=== PATIENT | female | born 1950 | race Caucasian/White ===

== ENCOUNTER 2016-07-31 12:37 | Inpatient (IN) ==
[2016-07-31] MEDS ORDERED: ADENOCARD ONE (12:55)
--- NOTE | 2016-07-31 13:02 | EKG Report ---
Test Performed on : 07/31/2016 12:50:23 PM Test Reason : No Order in [facility] Blood Pressure : / mmHG Vent. Rate : 159 BPM Atrial Rate : 153 BPM P-R Int : 000 ms QRS Dur : 094 ms QT Int : 326 ms P-R-T Axes : 000 -53 139 degrees QTc Int : 530 ms Supraventricular tachycardia. Left axis deviation Left ventricular hypertrophy with repolarization abnormality Abnormal ECG No previous ECGs available Unconfirmed Result
[2016-07-31] MEDS ORDERED: NS 1,000 ML ONE (13:22)
[2016-07-31] MEDS ORDERED: CORDARONE IV ONE (13:29)
[2016-07-31] MEDS ORDERED: CORDARONE 150 MG/D5W 150 MG/100 ML IV.SOLN ONE (13:31)
[2016-07-31] MEDS ORDERED: CORDARONE 150 MG/D5W 150 MG/100 ML IV.SOLN IV ONE (13:32)
[2016-07-31] MEDS ORDERED: ADENOCARD IV ONE ×2 (13:39)
[2016-07-31] MEDS ORDERED: CORDARONE 540 MG in D5W 289.2 ML IV ONE (13:51)
[2016-07-31] MEDS ORDERED: CORDARONE 360 MG/D5W 360 MG/200 ML IV.SOLN IV ONE (13:51)
[2016-07-31] MEDS ORDERED: NS 1,000 ML IV ONE (14:15)
--- NOTE | 2016-07-31 14:20 | PROVIDER DOCUMENTATION ---
This chart was entered by Salome Mcgill Scribe, acting as scribe for Racquel Varela Jr, MD. HPI-Chest Pain - General Chief Complaint: Palpitations Stated Complaint: sob/nausea Time Seen by Provider: 07/31/16 12:59 Source: patient Allergies/Adverse Reactions: Patient Allergies Allergy/AdvReac Type Severity Reaction Status Date / Time clonazepam [From Klonopin] Allergy DIZZINESS Verified 07/31/16 13:55 erythromycin base Allergy RASH Verified 07/31/16 13:55 [Erythromycin Base] povidone-iodine Allergy RASH Verified 07/31/16 13:55 [From Betadine] soap * [From Betadine] Allergy RASH Verified 07/31/16 13:55 topiramate [From Topamax] Allergy RASH Verified 07/31/16 13:55 trazodone Allergy DIZZINESS Verified 07/31/16 13:55 trimethoprim [From Polytrim] Allergy Unknown Verified 07/31/16 13:55 zonisamide [From Zonegran] Allergy Unknown Verified 07/31/16 13:55 adhesive AdvReac Severe RASH Verified 07/31/16 13:55 Home Medications: Home Medication List Medication Instructions Recorded Confirmed Last Taken Type Insulin Aspart [Novolog Flexpen] 35 unit SQ TID 10/04/13 07/31/16 1 Day Ago History Lactulose [Kristalose] 10 gm PO DAILY 10/04/13 07/31/16 1 Month Ago History Levothyroxine [Synthroid] 200 microgm PO DAILY 10/04/13 07/31/16 07/31/16 History Magnesium 2,400 mg PO BID 10/04/13 07/31/16 07/31/16 History Rosuvastatin Calcium [Crestor] 10 mg PO DAILY 10/04/13 07/31/16 1 Day Ago History Methocarbamol [Robaxin-750] 750 mg PO 4XDAY 11/14/13 07/31/16 1 Month Ago History Insulin Degludec [Tresiba 70 unit SQ QHS 07/31/16 07/31/16 1 Day Ago History Flextouch U-200] Lifitegrast [Xiidra] 1 drop OP BID 07/31/16 07/31/16 07/31/16 History Montelukast [Singulair] 10 mg PO QHS 07/31/16 07/31/16 1 Day Ago History Torreon-3 Fatty Acids [Fish Oil] 1,000 mg PO 07/31/16 1 Day Ago History Ondansetron HCl [Zofran] 4 mg PO BID 07/31/16 07/31/16 1 Day Ago History Oxymorphone HCl [Opana] 10 mg PO BID 07/31/16 07/31/16 1 Week Ago History Oxymorphone HCl [Oxymorphone HCl 10 mg PO BID 07/31/16 07/31/16 1 Week Ago History ER] Promethazine [Phenergan] 25 mg PO Q6H PRN PRN 07/31/16 07/31/16 07/31/16 History Propylene Glycol/Peg 400 [Systane 1 drop OP 4XDAY 07/31/16 07/31/16 07/31/16 History 0.3-0.4% Eye Drops] Rosuvastatin Calcium [Crestor] 10 mg PO QHS 07/31/16 07/31/16 1 Day Ago History Sucralfate [Carafate] 1 gm PO 4XDAY 07/31/16 07/31/16 07/31/16 History - History of Present Illness-CP Nature of Presenting Problem: PT IS A 66YOF PRESENTING TO THE ED C/O PALPITATIONS. PT STATES LAST PM SHE FELT PALPITATIONS, WEAKNESS, SOB, AND SHE FELT LIKE SHE HAD INDIGESTION. PT HAD PRESSURE FROM HER CHEST THAT RADIATED UP HER LEFT JAW AND BEHIND HER LEFT EAR. THIS AM WHEN SHE WOKE SHE STATED "IT FELT LIKE HER HEART WAS GOING TO BEAT OUT OF HER CHEST." PT STATES INDIGESTION WITH INCREASED WEAKNESS,. DISCOMFORT FROM CHEST UP JAW AND IN BETWEEN HER SHOULDER BLADES, SOB AND DIZZINESS BUT NO TRUE PAIN AT THAT TIME. PT ALSO STATES INCREASED AND PROFUSE SWEATING. UPON ARRIVAL TO ED PT IS IN SVT BUT STABLE AT THAT TIME. PT STATED SHE STARTED A NEW DM MEDICATION CALLED TRULISTY ON 07/14/16 AND SHE HAS BEEN SICK AND WORSENING SYMPTOMS SINCE 07/14/16N W/ N/V. PT STOPPED MEDS AND HASN'T GOTTEN ANY BETTER OR RESOLUTION OF SYMPTOMS AT THIS TIME. Location: reports: central Chest Pain Radiation: reports: jaw, arms, neck, shoulders Quality of Pain: reports: fullness, pressure Severity in ED: severe Onset/Duration: 1-3 hours ago Timing: still present Context/Activities at Onset: reports: light activity Modifying Factors: improves with: movement Associated Symptoms: reports: diaphoresis, dizziness, fatigue, heartburn, nausea , shortness of breath, weakness. denies: vomiting Nitro Today/Relief: no nitro taken today Aspirin Treatment Today: 325 mg x 1, provided by ED Prior Chest Pain/Cardiac Workup: reports: cardiac cath, stress test Similar Symptoms Previously?: No Recently Seen Here or By Another Healthcare Provider: No Review of Systems - Adult - REVIEW OF SYSTEMS - ADULT Constitutional: reports: no symptoms reported Eyes: reports: no symptoms reported Ears, Nose, Mouth & Throat: reports: no symptoms reported Cardiovascular: reports: see HPI, chest pain, irregular heart rate, palpitations . denies: syncope Respiratory: reports: see HPI, dyspnea on exertion, shortness of breath. denies : wheezing Gastrointestinal: reports: no symptoms reported Genitourinary: reports: no symptoms reported Musculoskeletal: reports: no symptoms reported Integumentary: reports: no symptoms reported Neurological: reports: see HPI, dizziness/vertigo, tremors. denies: loss of balance, seizure Psychiatric: reports: no symptoms reported Endocrine: reports: no symptoms reported Hematologic/Lymphatic: reports: no symptoms reported Allergic/Immunologic: reports: no symptoms reported All Other Systems: Reviewed and Negative Past History - Adult - PAST MEDICAL HISTORY-ADULT Review of Records: reports: Old Records Reviewed, Nursing Assessment Review, Medications Reviewed, Social history reviewed & non-contributory. Major Childhood Illnesses: reports: denies history Cardiovascular: reports: hyperlipidemia Respiratory: reports: denies history Gastrointestinal: reports: GERD Obstetrical/Gynecological: reports: denies history Genitourinary: reports: denies history Musculoskeletal: reports: arthritis, chronic pain (chronic back pain/ djd), other (chronic fatigue, tendonitis, bone spurs) Neurological: reports: denies history Endocrine/Immune: reports: Diabetes Other Conditions: reports: other (fibromyalgia) - PRIOR SURGERIES/PROCEDURES Surgical/Procedure History: reports: cholecystectomy, hysterectomy, orthopedic ( extremity) (Total knee replacement), other (carpal tunnel; tka bilaterally; bladder sling.) - IMMUNIZATION STATUS Childhood Immunizations: UTD Flu Vaccine: UTD - FAMILY HISTORY Family History: reviewed, not pertinent - SOCIAL HISTORY Smoking: quit greater than 1 year Substance Use: denies Alcohol Use Frequency: never Living Situation: family Physical Exam-General - PHYSICAL EXAM-ADULT Initial Vital Signs Reviewed: Yes - CONSTITUTIONAL General Appearance: alert, severe distress, obese, anxious - EYES Eyes: PERRL/EOMI, pink conjunctivae - HEAD, EARS, NOSE, MOUTH & THROAT HENMT: normocephalic/atraumatic, moist mucous membranes, normal ENT inspection, TMs normal, pharynx normal - NECK Neck: non-tender, full range of motion, supple, normal inspection - RESPIRATORY Respiratory: chest non-tender, lungs clear, normal breath sounds, no pleuratic chest pain, no respiratory distress, no accessory muscle use - CARDIOVASCULAR Cardiovascular: normal peripheral pulses, no edema, no gallop, no JVD, no murmur , tachycardia. negative: regular rate, rhythm - GASTROINTESTINAL (ABDOMEN) Abdominal Exam: normal bowel sounds, non tender, soft, no organomegaly, no pulsatile mass - LYMPHATIC Lymphatic: no adenopathy - MUSCULOSKELETAL Back Exam: normal inspection, no CVA tenderness, no vertebral tenderness Extremity: non-tender, no pedal edema, no calf tenderness, normal capillary refill, pelvis stable. 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 negative: normal mood/affect Progress - PLAN OF CARE/RESULTS Progress/Plan/Lab Results: Vital Signs - 8 hr 07/31/16 12:50 07/31/16 13:25 07/31/16 13:27 Temperature 98.5 F Pulse Rate 158 H 156 H 157 H Respiratory Rate 24 24 25 H Blood Pressure 131/80 134/117 O2 Sat by Pulse Oximetry 100 99 100 07/31/16 14:08 07/31/16 14:10 Temperature Pulse Rate 154 H 142 H Respiratory Rate 15 19 Blood Pressure 109/86 109/86 O2 Sat by Pulse Oximetry 100 99 Orders Category Date Time Status 0.9% Sodium Chloride Inj [Ns] 1,000 ml Med 07/31/16 13:22 Discontinued .ROUTE As Directed 0.9% Sodium Chloride Inj [Ns] 1,000 ml Med 07/31/16 14:15 Active IV 999 mls/hr Adenosine [Adenocard] Med 07/31/16 13:39 Discontinued 12 mg IV NOW ONE Adenosine [Adenocard] Med 07/31/16 12:55 Discontinued 18 mg .ROUTE .STK-MED ONE Adenosine [Adenocard] Med 07/31/16 13:39 Discontinued 6 mg IV NOW ONE Amiodarone 150 mg/D5w [Cordarone 150 mg/D5w] Med 07/31/16 13:31 Discontinued 150 mg in 100 ml .ROUTE As Directed Amiodarone 150 mg/D5w [Cordarone 150 mg/D5w] Med 07/31/16 13:32 Discontinued 150 mg in 100 ml IV NOW Amiodarone 360 mg/D5w [Cordarone 360 mg/D5w] Med 07/31/16 13:51 Active 360 mg in 200 ml IV ONCE Dextrose 5%-Water Inj [D5w] 289.2 ml Med 07/31/16 13:51 Active Amiodarone [Cordarone] 540 mg IV 16.667 mls/hr EKG [EKG] Routine Ther 07/31/16 12:[address] VARELA AT BEDSIDE TO ATTEMPT TO CARDIOVERT PT. DR VARELA ORDERED ADENOSINE FOR CARDIOVERSION ATTEMPT. 1327 6MG ADENOSINE PUSHED WITH NO CARDIO-VERSION 1329 DR VARELA ADVISED PT TO TAKE A DEEP BREATH AND BARE DOWN ATTEMPTING VAGEL MANEUVER FOR CARDIO-VERSION, UNSUCCESSFUL 1330 12MG ADENOSINE PUSHED, UNSUCCESSFUL, PT BLOOD PRESSURE STABLE AT THIS TIME SO WILL CONSULT CARDIOLOGY FOR CARDIO-VERSION. 1331 150MG AMIO ORDER X2 IF NEEDED FOR CADIO-VERSION LONG PT CONTINUES TO STAY STABLE. 1347 DR VELEZ WAS CALLED AND HE STATED HE WOULD SEE PT IN ED BUT AGREES WITH POC AT THIS TIME - CONSULTS/PCP/HOSPITALIST Notification #1 *Consult/PCP/Hospitalist*: DR. VELEZ Time Discussed: 13:47 Reason/Comments: CONSULT FOR CARDIOVERSION WILL SEE IN ED Consult Disposition: Will see in ED #2 Consult: DR. LUTHER Time Discussed: 14:11 Consult Disposition: Admit (PER [employer] WORKER) Procedures - CARDIOVERSION/DEFIBRILLATION Procedure, Risk, Benefits and Alternatives discussed with:: Patient, Family Members Consent form signed?: Yes Time-Out Verification Completed?: Yes Cardioverted/Defibrillated at:: 6MG ADENOSINE, 12MG ADENOSINE, 150MG AMIODARONE X2 Post Cardioversion/Defibrillation Rate: PT STILL SVT OF 158 AFTER ADENOSINE Post Cardioversion/Defibrillation Rhythm: PT STARTING TO RESPOND TO AMIODARONE DRIP, HR BOUNCING BUT BETTER, VS Procedure Comment: CONSULTED CARDIOLOGY AND DR. VELEZ STATED HE WILL SEE IN ED Departure - Departure Date of Disposition Decision: 07/31/16 Time of Disposition Decision: 14:19 DIAGNOSIS: SVT (supraventricular tachycardia) Disposition: ADMITTED INPATIENT 09 Certified Medical Emergency: Emergent Condition: Fair Referrals and Follow-Ups: Rad Ramírez MD [Primary Care Provider] - - Critical Care Note This patient required my direct & personal management of CC.: Yes Total Time (mins): 60 (DR VARELA) Critical Care Statement: This patient required my direct personal management to treat or rule out processes, the absence of which, could potentiallly result in sudden, clinically significant life or limb threatening deterioration. This chart was documented by the indicated scribe, (Salome Mcgill Scribe) and accurately reflects the services I performed and decisions made by me, Racquel Varela Jr, MD, as attested by the provider's signature.
--- NOTE | 2016-07-31 14:43 | Diag Imaging Result Doc PS360 ---
EXAM: CHEST-PORTABLE HISTORY: SVT TECHNIQUE: COMPARISON: None. FINDINGS: The lungs are well expanded. The heart is not enlarged. The vessels are not distended. No pneumonia. No pleural effusions identified. IMPRESSION: Negative chest Electronically signed by Anthony Clark 07/31/2016 2:40 PM
--- NOTE | 2016-07-31 15:39 | ED EKG INTERP ---
This chart was entered by Salome Mcgill Scribe, acting as scribe for Zachery Martinez MD. EKG Interpretation - EKG Time of EKG reading by physician:: 12:50 EKG Read and Signed by:: Zachery Martinez EKG Interpretation (*Must complete 3 of following elements*): Abnormal Rate: 159 Rhythm: SVT [place]: left QRS: LVH (W/ REPOLARIZATION ABNORMALITY) [place] Interval: normal This chart was documented by the indicated scribe, (Salome Mcgill Scribe) and accurately reflects the services I performed and decisions made by me, Zachery Martinez MD, as attested by the provider's signature.
[2016-07-31 15:58] LABS: MANUAL DIFF NEEDED? NO
[2016-07-31 16:04] LABS: BASO% 0.7 % (0.0-0.8); EOS# 0.23 X1000 (0.0-0.7); EOS% 1.8 % (0.0-10.0); HEMATOCRIT 43.7 % (37.0-47.0); HEMOGLOBIN 14.3 g/dL (12.0-16.0); IMM GRAN# 0.04 X1000 (0.0-0.04); IMM GRAN% 0.3 % (0.0-0.5); LYMPH# 4.12 X1000 (1.2-3.4); LYMPH% 32.1 % (20.5-51.1); MCH 27.8 PG (27-31); MCHC 32.7 g/dL (33-37); MCV 84.9 FL (81-99); MONO# 0.91 X1000 (0.11-0.59); MONO% 7.1 % (1.7-9.3); MPV 13.3 FL (7.4-10.4); PLT 249 X1000 (130-400); RBC 5.15 XMIL (4.2-5.4)
[2016-07-31 16:18] LABS: AGAP 22; ALBUMIN 4.1 g/dL (3.5-5.0); ALKALINE PHOSPHATASE 81 U/L (32-104); BUN 16 mg/dL (8-22); CALCIUM 9.6 mg/dL (8.8-10.2); CHLORIDE 100 mmol/L (98-107); COSMO 281; GOT 26 U/L (10-30); GPT 23 U/L (10-36); POTASSIUM 4.6 mmol/L (3.5-5.1); SODIUM 139 mmol/L (136-145); TCO2 17 mmol/L (25-35); TOTAL BILIRUBIN 0.79 mg/dL (0.20-1.00); TOTAL PROTEIN 7.8 g/dL (6.3-8.3)
[2016-07-31] MEDS ORDERED: ZOFRAN IV PRN (16:39)
--- NOTE | 2016-07-31 16:54 | HISTORY AND PHYSICAL ---
PRIMARY CARE PHYSICIAN: Dr. Ramírez. GASTROINTESTINAL PHYSICIAN: Dr. Peña. PAIN PHYSICIAN: Is Dr. Avni Leyva as well as [place]. The patient was set up to have an appointment with Dr. Blackman this . CHIEF COMPLAINT: Palpitations that started on her walk into the ED after experiencing chest pain. HISTORY OF PRESENT ILLNESS: Ms. Ward is a 66-year-old morbidly obese, female, who carries a past medical history of sleep apnea, wears home CPAP, GERD, hyperlipidemia, arthritis, chronic pain in the back, degenerative joint disease, chronic fatigue, tendinitis, bone spurs, diabetes, fibromyalgia. The patient stated that her symptoms began back on July 14 where she thought she had a stomach virus after other family members had the stomach virus. She had several days of nausea, vomiting, diarrhea. She was also started on a new diabetic med which could cause the similar symptoms so she stopped that medication. After a few days she felt better but continued to have nausea so she took herself off of 2 pain medications, her Lyrica and her muscle relaxer as well as her Protonix and she also stopped taking her magnesium. Then again she started having intermittent diarrhea. Continued to have the nausea but no vomiting. She states that she occasionally does have shortness of breath but more so over the last few days she has had dyspnea with exertion. Today she started having chest pain that started out as a burning sensation in her throat that moved up to her left jaw and then went behind her left ear. She stated that this chest pain went between her shoulder blades. It felt like her gastritis and when she had gallbladder pain prior to her cholecystectomy. She said it felt the exact same way. It did wax and wane but when it went in between her shoulder blades, she did drive herself to the ED and when she was walking in is when she started having the palpitations with a severe shortness of breath. In the ED, she was found to be in SVT. She was also experiencing nausea, diaphoresis, clamminess. She was given 6 mg of adenosine with no change, then 12 mg of adenosine with no change and then bolused with amiodarone twice with no change and then started on amiodarone drip. Her heart rate now will be anywhere from 120s to 150s on beside monitor appears to look like atrial fibrillation. Dr. Ceron is to see the patient in the ED for cardioversion. No current laboratory data. Chest x-ray showed that the lungs were well expanded. The heart was not enlarged. The vessels were not distended. No pleural effusions. First EKG showed SVT with left axis deviation. I do not have those to review. Second EKG continued to show SVT with left axis deviation. The patient will be admitted to the ICU for possible cardioversion with Cardiology. REVIEW OF SYSTEMS: Ten point review of systems completely negative except for those mentioned in HPI. PAST MEDICAL HISTORY: 1. Hyperlipidemia. 2. GERD. 3. Arthritis. 4. Chronic pain. 5. Chronic back pain. 6. Chronic fatigue. 7. Tendinitis. 8. Bone spurs. 9. Diabetes mellitus. 10. Fibromyalgia. PAST SURGICAL HISTORY: 1. Cholecystectomy. 2. Hysterectomy. 3. Total knee replacement. 4. Carpal tunnel. 5. Bladder sling. FAMILY HISTORY: Reviewed. Not pertinent. SOCIAL HISTORY: The patient quit smoking greater than a year ago. No alcohol use. Lives with family. She has been disabled now for over 20 years. ALLERGIES: 1. Klonopin causes dizziness. 2. Erythromycin causes a rash. 3. Betadine causes a rash. 4. Topamax causes a rash. 5. Trazodone causes dizziness. 6. Polytrim unknown. 7. Zonegran unknown. 8. Adhesive tape, rash. HOME MEDICATIONS: 1. Opana 10 mg p.o. b.i.d. 2. Oxymorphone ER 10 mg p.o. b.i.d. 3. Xiidra 1 drop OP b.i.d. 4. Systane eyedrops 1 drop OP 4 times a day. 5. Phenergan 25 mg p.o. q.6 hours p.r.n. 6. Zofran 4 mg p.o. b.i.d. 7. Carafate 1 g p.o. 4 times a day. 8. Crestor 10 mg p.o. at bedtime. 9. Singulair 10 mg p.o. at bedtime. 10. Tresiba 70 units subcutaneous at bedtime. 11. Lactulose 10 g p.o. daily. 12. NovoLog FlexPen 35 units subcutaneously t.i.d. 13. Magnesium 75168 mg p.o. b.i.d. 14. Synthroid 200 mcg p.o. daily. 15. Robaxin 750 mg p.o. 4 times a day. 16. Crestor 10 mg p.o. daily. 17. Fish oil 1000 mg p.o. daily. PHYSICAL EXAM: VITAL SIGNS: Temperature is 98.5 degrees, heart rate 155, respirations 22, blood pressure 132/82, O2 is 99% on 3 L nasal cannula. GENERAL: Ms. Ward is a pleasant somewhat anxious 66-year-old morbidly obese, female, sitting up on the stretcher in no acute distress. HEENT: Atraumatic, normocephalic. PERRLA. NECK: Supple. Trachea midline. CV: No murmurs, gallops, or rubs noted. S1, S2 appreciated. The patient's heart rate would be anywhere from 120s up to the upper 150s. PULMONARY: Bilateral breath sounds clear to auscultation. GI: Is obese, soft, nontender nondistended. Positive bowel sounds 4 quadrants. EXTREMITIES: Negative for edema. NEURO: No focal deficits noted. SKIN: Warm, dry and intact. DIAGNOSTIC DATA: A chest x-ray was negative. Two EKGs that showed SVT with left axis deviation. LABORATORY DATA: Pending. ASSESSMENT AND PLAN: 1. SVT on arrival now vs, afib/aflutter Patient has been given 2 doses of adenosine as well as 2 boluses of amiodarone. She has been started on a amiodarone drip. She will be evaluated by Cardiology for possible cardioversion. She will be admitted to the ICU on telemetry. Pending labs: I have ordered a CMP, TSH as well as a magnesium and follow up EKG to assess for afib. start anticoagulation per cards recommendations. 2. Chronic pain. The patient had taken herself off of 2 pain medications, her Lyrica as well as her Robaxin. She has also advised her pain doctor of this. Will continue to monitor and order p.r.n. medicines on an as needed basis. 3. Chest pain. We will trend cardiac enzymes. Those are currently pending. We will follow up EKG in a.m. Await Cardiology input. 4. GERD. Continue PPI. 5. Hyperlipidemia. Continue statin. 6. Diabetes mellitus. Will do pattern blood sugars and sliding scale insulin. 7. Further recommendations following laboratory data, Cardiology evaluation as well as physician evaluation. Critical care time greater than 30 minutes. Dictated by ADI Hogan for Abel No MD cc: bAel No MD MTDD
[2016-07-31 17:05] LABS: URINE MICRO REVIEW NEEDED? NO; URINE SOURCE CATH
[2016-07-31 17:09] LABS: BILIRUBIN URINE NEGATIVE (NEGATIVE); BLOOD URINE NEGATIVE (NEGATIVE); COLOR STRAW; GLUCOSE URINE NEGATIVE (NEGATIVE); LEUKOCYTES URINE NEGATIVE (NEGATIVE); NITRITE URINE NEGATIVE (NEGATIVE); PROTEIN URINE NEGATIVE (NEGATIVE); SP GRAVITY URINE 1.006; TURBIDITY URINE CLEAR (CLEAR); UR EPITHELIAL CELLS <10 /HPF (<10); URINE BACTERIA NEGATIVE /HPF; URINE RBC <10 /HPF (<10); URINE WBC <10 /HPF (<10); UROBILINOGEN URINE NORMAL (NORMAL)
[2016-07-31] MEDS: HUMALOG SUBQ SCH ×2 (18:08→21:19)
[2016-07-31] MEDS: SYSTANE EYE DROPS BOTH EYES SCH ×2 (18:10→21:22)
[2016-07-31] MEDS: CARAFATE PO SCH ×2 (18:10→21:22)
[2016-07-31] MEDS ORDERED: ASPIRIN PO ONE (18:14)
[2016-07-31] MEDS ORDERED: LOVENOX SUBQ SCH (20:00)
[2016-07-31] MEDS ORDERED: MAGNESIUM PO SCH (21:00)
[2016-07-31] MEDS: TYLENOL PO PRN (21:20)
[2016-07-31] MEDS: MAG-OX PO SCH (21:22)
[2016-07-31] MEDS: CRESTOR PO SCH (21:23)
[2016-07-31] MEDS: ZOFRAN IV PRN (23:49)
--- NOTE | 2016-07-31 23:49 | CONSULTATION ---
DATE OF CONSULTATION: 07/31/2016 IMPRESSION: 1. Atrial flutter with rapid ventricular rate. Duration not clear. 2. Obesity. 3. Obstructive sleep apnea. 4. Hyperlipidemia. RECOMMENDATIONS: 1. Continue amiodarone for now. 2. Supplement amiodarone with intravenous Cardizem for rate control. Anticoagulate with Lovenox for thromboembolic risk reduction. 3. Echocardiography. 4. If atrial flutter persists, consider transesophageal echocardiography/cardioversion. HISTORY: This 66-year-old white female with a past history of morbid obesity, obstructive sleep apnea, hyperlipidemia, and gastroesophageal reflux, was admitted through the emergency room for further management of atrial flutter with rapid ventricular rate. She also has a history of diabetes mellitus, requiring insulin for control. Around July 14, she started having problems with a tendency for diaphoresis and exertional shortness of breath with minimal threshold such as walking through the house. She also had some nausea. She does not recall much in the way of palpitations. However, in the last 48 hours, she has noted some palpitations. Her symptoms have progressively worsened, and she presented to the emergency room, was found to be in narrow complex supraventricular tachycardia at around 160 beats per minute. She was administered intravenous adenosine 6 mg, and then 12 mg. She did not convert to sinus rhythm. She was subsequently started on intravenous amiodarone, admitted to the intensive care unit. Heart rate is slowed, and atrial flutter is apparent. She is not aware of any previous cardiac problems, arrhythmias, or palpitations in the past. PAST MEDICAL HISTORY: 1. Obesity. 2. Diabetes mellitus, requiring insulin for control. 3. Obstructive sleep apnea. 4. Gastroesophageal reflux. 5. Chronic fatigue. 6. Chronic back pain. 7. History of hypothyroidism. PAST SURGICAL HISTORY: Cholecystectomy, hysterectomy, total knee replacement, carpal tunnel surgery, and bladder sling. ALLERGIES: Klonopin, erythromycin, Betadine, Topamax, trazodone, Polytrim, Zonegran, and adhesive tape. MEDICATIONS PRIOR TO ADMISSION: As listed. SOCIAL HISTORY: She quit smoking more than a year ago. She does not use alcohol. FAMILY HISTORY: Negative for premature coronary disease. REVIEW OF SYSTEMS: Pulmonary: Noteworthy for exertional shortness of breath with low threshold. There has been no cough or orthopnea. Gastrointestinal: Negative. Constitutional: Noteworthy for fatigue and diminished energy. The remainder of the review of systems negative/noncontributory, with 14 total systems reviewed. PHYSICAL EXAMINATION: General: This is a morbidly obese white female, in no distress. Vital Signs: As recorded. Heart rate 120 and irregular, with ECG monitor showing atrial flutter. HEENT: Extraocular movements intact. Mucous membranes are moist. Neck: Supple. No JV distention. No carotid bruits. Chest: Clear to auscultation. Cardiac: An irregular tachycardia, without appreciable murmur or gallop. Abdomen: Soft, nontender. Bowel sounds normal. Extremities: Trace pedal edema. Neurologic: Reveals her to be alert, fully oriented. Speech is fluent. Moves all 4 extremities equally well. Skin: Warm, dry. Psychiatric: Reveals mood to be appropriate. DIAGNOSTIC DATA: ECG demonstrates atrial flutter, with rapid ventricular rate. cc: Misael Ceron MD
[2016-08-01] MEDS: LOPRESSOR PO SCH ×4 (00:44→17:42)
[2016-08-01] MEDS: TYLENOL PO PRN ×3 (03:46→22:19)
--- NOTE | 2016-08-01 05:21 | EKG Report ---
Test Performed on : 07/31/2016 5:42:04 PM Test Reason : svt Blood Pressure : / mmHG Vent. Rate : 104 BPM Atrial Rate : 300 BPM P-R Int : 000 ms QRS Dur : 100 ms QT Int : 344 ms P-R-T Axes : 017 -58 142 degrees QTc Int : 452 ms Atrial flutter. with variable AV block. Left anterior fascicular block Minimal voltage criteria for LVH, may be normal variant Cannot rule out Anterior infarct , age undetermined ST \T\ T wave abnormality, consider inferior ischemia Abnormal ECG When compared with ECG of 31-JUL-2016 12:50, (Unconfirmed) Atrial flutter. has replaced Sinus rhythm. Vent. rate has decreased BY 55 BPM Nonspecific T wave abnormality now evident in Inferior leads T wave inversion more evident in Anterolateral leads Confirmed by Chalo DIAZ, Richard Canales ([id number]) on 08/05/2016 12:36:05 PM
--- NOTE | 2016-08-01 05:24 | EKG Report ---
Test Performed on : 08/01/2016 01:20:08 AM Test Reason : SVT Blood Pressure : / mmHG Vent. Rate : 105 BPM Atrial Rate : 300 BPM P-R Int : 000 ms QRS Dur : 102 ms QT Int : 330 ms P-R-T Axes : 000 -64 243 degrees QTc Int : 436 ms Atrial flutter. with variable AV block. Left anterior fascicular block Minimal voltage criteria for LVH, may be normal variant Cannot rule out Anterior infarct (cited on or before 31-JUL-2016) Abnormal ECG When compared with ECG of 31-JUL-2016 17:42, (Unconfirmed) No significant change was found Confirmed by Chalo DIAZ, Richard Canales ([id number]) on 08/05/2016 12:36:24 PM
[2016-08-01 06:10] LABS: MANUAL DIFF NEEDED? NO
[2016-08-01 06:26] LABS: BASO% 0.4 % (0.0-0.8); EOS# 0.18 X1000 (0.0-0.7); EOS% 1.9 % (0.0-10.0); HEMATOCRIT 41.1 % (37.0-47.0); HEMOGLOBIN 13.3 g/dL (12.0-16.0); IMM GRAN# 0.02 X1000 (0.0-0.04); IMM GRAN% 0.2 % (0.0-0.5); LYMPH# 2.93 X1000 (1.2-3.4); LYMPH% 30.5 % (20.5-51.1); MCH 27.8 PG (27-31); MCHC 32.4 g/dL (33-37); MONO# 0.66 X1000 (0.11-0.59); MONO% 6.9 % (1.7-9.3); MPV 12.8 FL (7.4-10.4); NEUT% 60.1 % (42.2-75.2); PLT 245 X1000 (130-400); RBC 4.78 XMIL (4.2-5.4)
[2016-08-01 06:46] LABS: HDL 32 mg/dL (45-65); LDL 86 mg/dL; TRIGLYCERIDES 227 mg/dL (35-135); VLDL 45 mg/dL
[2016-08-01] MEDS: SYNTHROID PO SCH (06:49)
[2016-08-01] MEDS: PRILOSEC PO SCH (06:49)
[2016-08-01] MEDS: HUMALOG SUBQ SCH ×4 (06:51→21:31)
[2016-08-01 07:09] LABS: AGAP 17; BUN 13 mg/dL (8-22); CALCIUM 8.9 mg/dL (8.8-10.2); CHLORIDE 105 mmol/L (98-107); COSMO 286; MAGNESIUM 1.9 mg/dL (1.5-2.7); SODIUM 142 mmol/L (136-145); TCO2 20 mmol/L (25-35)
--- NOTE | 2016-08-01 07:15 | Diag Imaging Result Doc PS360 ---
CHEST-PORTABLE - 08/01/2016 INDICATION: Chest Pain TECHNIQUE: COMPARISON: 07/31/2016 FINDINGS: The lungs are normally expanded and clear. Heart size and mediastinal contours are normal. No pneumothorax or pleural effusion. IMPRESSION: Negative exam. Electronically signed by Gregorio Freeman 08/01/2016 7:13 AM
--- NOTE | 2016-08-01 08:50 | PROGRESS NOTE ---
DATE: 08/01/2016 SUMMARY: Patient continues in atrial flutter with heart rate around 110 beats per minute. She denies chest discomfort or dyspnea. She has some mild palpitations. OBJECTIVE: Vital Signs: Blood pressure 132/66, oxygen saturation 100% on 2 L per nasal cannula, heart rate 106. ECG monitor showing atrial flutter. Neck: There is no significant jugular venous distention. Chest: Clear to auscultation. Cardiac Exam: Reveals a slightly irregular rhythm without appreciable murmur or gallop. Extremities: There is no evidence of peripheral edema. IMPRESSION: 1. Atrial flutter, persistent despite amiodarone. 2. Obstructive sleep apnea. 3. Obesity. 4. Hyperlipidemia. RECOMMENDATIONS: 1. Continue Lovenox. 2. Continue amiodarone for now. 3. Continue beta-andrew, metoprolol. 4. Given persistent atrial flutter, favor pursuit of transesophageal echocardiography cardioversion. This was discussed with the patient and she wished to proceed. cc: Misael Ceron MD
[2016-08-01] MEDS ORDERED: CRESTOR PO SCH (09:00)
--- NOTE | 2016-08-01 09:14 | PROGRESS NOTE ---
DATE: 08/01/2016 SUBJECTIVE: This patient states that she has been feeling fine, she is complaining of a mild chest pressure. She is still on atrial flutter. The plan today is to go ahead and get a RENO and possible cardioversion. Cardiology Department is following this patient closely. OBJECTIVE: Vital Signs: Temperature 97.5 degrees, pulse 106, respiratory rate 19, blood pressure 132/66, and oxygen saturation 99 on 3 L of nasal cannula. HEENT: Normocephalic. No trauma. PERRLA. Neck: Supple. Obese. I can't see JVD because of the neck size. Central trachea. Chest: Clear to auscultation. No wheezing. No rales. Cardiovascular: Irregular and rhythm. No murmurs. Abdomen: Soft. Protuberant. Obese. Nontender. Nondistended. No hepatosplenomegaly. Extremities: No edema. No clubbing. No cyanosis. Neurological: The patient is alert and oriented x3. No focal neurological deficits. PHYSICAL EXAMINATION: Temperature 97.5 degrees, pulse 106 respiratory rate 19, blood pressure 132/66, and oxygen saturation 99 on room air. LABORATORY: WBC 9.6, hemoglobin 13.3, hematocrit 41.1, and platelets 245,000. Sodium 142, potassium 4, chloride 105, bicarbonate 20, BUN 13, creatinine 0.8, glucose 143, calcium 8.9, triglycerides 227 and cholesterol 163. TSH 17 but T4 is 118. ASSESSMENT AND PLAN: 1. Atrial flutter, the rate is controlled but this patient has been evaluated by Cardiology. She will be scheduled for RENO and cardioversion today. I will keep this patient in the ICU. 2. Chronic pain. Continue with the same management. 3. Chest pain. Cardiac enzymes have been stable as well as CK, Cardiology Department is following this patient. Patient will continue following their recommendations. 4. Gastroesophageal reflux disease. Continue with PPIs. 5. Hyperlipidemia. Continue with statins. 6. Type 2 diabetes. I will continue with pattern of blood sugar and sliding scale insulin for now. 7. Morbid obesity aware. CRITICAL CARE TIME: 35 minutes. cc: Abel No MD
[2016-08-01 09:41] LABS: INR 1.03; PROTIME 10.8 Seconds (9.2-11.7)
[2016-08-01] MEDS: SYSTANE EYE DROPS BOTH EYES SCH ×4 (09:49→21:18)
[2016-08-01] MEDS: ASPIRIN PO SCH (09:58)
[2016-08-01] MEDS: LOVENOX SUBQ SCH ×2 (09:58→21:17)
[2016-08-01] MEDS: MAG-OX PO SCH ×2 (09:59→21:19)
[2016-08-01] MEDS: CARAFATE PO SCH ×4 (09:59→21:19)
[2016-08-01] MEDS: ZOFRAN IV PRN (11:00)
[2016-08-01] MEDS ORDERED: XYLOCAINE 4% TOPICAL SOLUTION ONE (12:38)
[2016-08-01] MEDS ORDERED: XYLOCAINE 2% VISCOUS ONE (12:38)
[2016-08-01 13:28] LABS: ALLEN TEST YES; BLOOD TYPE ARTERIAL; DRAW SITE R RADIAL; METHB 1.4 % (0.0-1.5); O2(CT) 19.5 mL/dL (15.0-23.0); PO2(98.6) 139 mmHg (60-100); SAMPLE BLOOD; SAO2 99.1 % (95.0-100.0); THB 14.2 g/dL (11.5-17.4)
[2016-08-01 13:32] LABS: MODALITY CANNULA; PCO2(98.6) 19 mmHg (35-45); pH(98.6) 7.59 (7.35-7.45)
[2016-08-01] MEDS ORDERED: XYLOCAINE-MPF 2% ONE (14:18)
[2016-08-01] MEDS ORDERED: AMIDATE ONE (14:18)
--- NOTE | 2016-08-01 15:47 | EKG Report ---
Test Performed on : 08/01/2016 2:54:26 PM Test Reason : post procedure cardioversion Blood Pressure : / mmHG Vent. Rate : 081 BPM Atrial Rate : 081 BPM P-R Int : 146 ms QRS Dur : 100 ms QT Int : 344 ms P-R-T Axes : 060 -55 092 degrees QTc Int : 399 ms Normal sinus rhythm. Left anterior fascicular block Minimal voltage criteria for LVH, may be normal variant Nonspecific ST and T wave abnormality Abnormal ECG When compared with ECG of 01-AUG-2016 01:20, (Unconfirmed) Sinus rhythm. has replaced Atrial flutter. Confirmed by Chalo DIAZ, Richard Canales ([id number]) on 08/05/2016 12:37:24 PM
--- NOTE | 2016-08-01 19:05 | CARDIAC CATH REPORT ---
DATE: 08/01/2016 PROCEDURE: Direct current cardioversion. INDICATION: Patient with persistent atrial flutter. DESCRIPTION: The patient was brought to the [facility] for a RENO first. This was done under general anesthesia services of Dr. Srivastava. Once the patient completed the RENO and after ruling out thrombus, we placed the pads in an anteroposterior location. She received a single synchronized countershock to the chest cage consisting of 150 gallego per second. She converted from atrial flutter into normal sinus rhythm. She woke up from the effects of anesthesia without deficit. IMPRESSION: In summary, this was a successful cardioversion from atrial flutter into sinus rhythm. RECOMMENDATIONS: The patient will be treated with antiarrhythmics under the supervision of Dr. Ceron. At this time she is stable. cc: Koko Lim MD
--- NOTE | 2016-08-01 19:11 | ECHO REPORT ---
ORDER DATE: 08/01/2016 INDICATION: Patient with persistent atrial flutter. DESCRIPTION: The patient was brought to the [facility] after she was consented by Dr. Ceron and associates. The throat was anesthetized with Hurricaine and viscous lidocaine. She received intravenous etomidate under the anesthesia services of Dr. Srivastava. Once the patient was adequately sedated, she was intubated without difficulty. Multiple views of the cardiac structure were obtained. SUMMARY OF MAIN FINDINGS: The left atrium and appendage are free of any thrombus.Flow velocities are normal within appendage. There is prominent interatrial septal lipomatosis. No shunt is noted by injection of agitated saline. The right atrium is normal. The tricuspid valve looks normal. The right ventricle is normal. The pulmonic valve appears to be unremarkable. The aortic valve looks normal. Color flow mapping unremarkable. The ascending aorta and aortic root are unremarkable. The left ventricle is normal in size and function. No pericardial effusion. The ascending thoracic aorta is unremarkable. The mitral valve is normal. Color flow mapping indicates a mild degree of regurgitation. IMPRESSION: In summary, this transesophageal echocardiogram shows no evidence of thrombus. Cardioversion may be carried out with low risk for stroke. cc: MD Misael Patten MD [facility]
[2016-08-01] MEDS: CRESTOR PO SCH (21:19)
[2016-08-02] MEDS: LOPRESSOR PO SCH ×2 (01:54→06:26)
[2016-08-02 05:44] LABS: MANUAL DIFF NEEDED? NO
[2016-08-02 05:47] LABS: BASO% 0.5 % (0.0-0.8); EOS# 0.23 X1000 (0.0-0.7); EOS% 2.4 % (0.0-10.0); HEMATOCRIT 39.4 % (37.0-47.0); HEMOGLOBIN 12.7 g/dL (12.0-16.0); IMM GRAN# 0.02 X1000 (0.0-0.04); IMM GRAN% 0.2 % (0.0-0.5); LYMPH# 2.69 X1000 (1.2-3.4); LYMPH% 28.2 % (20.5-51.1); MCH 27.9 PG (27-31); MCHC 32.2 g/dL (33-37); MCV 86.6 FL (81-99); MONO# 0.69 X1000 (0.11-0.59); MONO% 7.2 % (1.7-9.3); MPV 11.6 FL (7.4-10.4); NEUT% 61.5 % (42.2-75.2); PLT 225 X1000 (130-400); RBC 4.55 XMIL (4.2-5.4)
[2016-08-02 06:08] LABS: AGAP 14; BUN 16 mg/dL (8-22); CHLORIDE 104 mmol/L (98-107); COSMO 283; MAGNESIUM 2.2 mg/dL (1.5-2.7); POTASSIUM 3.8 mmol/L (3.5-5.1); SODIUM 140 mmol/L (136-145); TCO2 22 mmol/L (25-35)
[2016-08-02] MEDS: HUMALOG SUBQ SCH ×2 (06:26→10:46)
[2016-08-02] MEDS: SYNTHROID PO SCH (06:26)
[2016-08-02] MEDS: PRILOSEC PO SCH (06:26)
[2016-08-02] MEDS: TYLENOL PO PRN (08:55)
[2016-08-02] MEDS: ZOFRAN IV PRN (08:55)
[2016-08-02] MEDS: ASPIRIN PO SCH (09:45)
[2016-08-02] MEDS: CARAFATE PO SCH (09:45)
[2016-08-02] MEDS: LOVENOX SUBQ SCH (09:46)
[2016-08-02] MEDS: SYSTANE EYE DROPS BOTH EYES SCH (09:46)
[2016-08-02 10:01] VITALS: BP 136/77
[2016-08-02] MEDS: MAG-OX PO SCH (10:19)
--- NOTE | 2016-08-02 11:06 | PROGRESS NOTE ---
DATE: 08/02/2016 SUBJECTIVE: Patient continues asymptomatic from a cardiovascular standpoint. OBJECTIVE: Vital Signs: Blood pressure 136/77, heart rate 72 and regular. Oxygen saturation 100% on room air. ECG monitor shows sinus rhythm. Chest: Clear to auscultation. Cardiac Exam: Reveals a regular rate and rhythm without appreciable murmur or gallop. There is no evidence of peripheral edema. Transesophageal echocardiography yesterday, prior to cardioversion indicated normal left ventricular size and function. No significant valvular abnormality. IMPRESSION: 1. Episode of atrial flutter. Patient remains in sinus rhythm following RENO cardioversion. 2. Obesity. 3. Obstructive sleep apnea. RECOMMENDATIONS: Reasonable to discharge the patient on Eliquis and metoprolol succinate. I will see her again in approximately 3-4 weeks for follow-up. cc: Misael Ceron MD
--- NOTE | 2016-08-02 16:29 | DISCHARGE SUMMARY ---
ADMISSION DATE: 07/31/2016 DISCHARGE DATE: 08/02/2016 CONSULTATIONS: Misael Ceron MD with Cardiology. PERTINENT PROCEDURES: 1. RENO showed no evidence of thrombus. Patient's cardioversion could be carried out with low risk for stroke. 2. Direct current cardioversion for persistent atrial fibrillation was successful from atrial flutter into sinus rhythm performed by Dr. Lim. DISCHARGE DIAGNOSES: 1. Atrial flutter rate controlled after transesophageal echocardiography cardioversion. The patient will be discharged on metoprolol and Eliquis, and follow up with Dr. Ceron in 3-4 weeks. 2. Chronic pain. Continue with patient's home regimen. 3. Chest pain ruled out with cardiac enzymes. 4. Gastroesophageal reflux disease. Continue proton pump inhibitor. 5. Hyperlipidemia. Continue statin. 6. Diabetes mellitus type 2. Continue home medications. 7. Morbid obesity. The patient educated about diet. HOSPITAL COURSE: Briefly, Ms. Ward is a 66-year-old, female who carries a past medical history of morbid obesity, obstructive sleep apnea wearing a CPAP, hyperlipidemia, GERD, chronic back pain. The patient came to the ED for worsening shortness of breath as well as chest pain. On arrival to the ED while she was walking in she felt palpitations, she became more dyspneic, she was diaphoretic. She had also reported around July 14 she started having problems with what she thought was gastroenteritis. It resolved after a few days, however, the nausea persisted and she continued to have intermittent diarrhea. She had stopped all of her pain medications, Lyrica as well as her muscle relaxer. She had also stopped a new diabetic medication that could cause the same GI upset symptoms and she had also discontinued her Protonix as well as her magnesium. In the emergency room she was found to be in narrow complex SVT of around 160 beats. She was given IV adenosine 6 mg and 12 mg. She did not convert so she subsequently had 2 boluses of amiodarone and started on amiodarone drip, and was moved to the Intensive Care Unit and awaited a Cardiology consultation. She was started on anticoagulation. The patient did undergo a RENO cardioversion by Dr. Lim for persistent atrial flutter and will be discharged on her home medications as well as metoprolol and Eliquis, and follow up with Dr. Ceron in 3-4 weeks. VITAL SIGNS AT TIME OF DISCHARGE: Temperature 97.7 degrees, heart rate 72, respirations 21, blood pressure 136/77, O2 is 100% on room air. DISCHARGE MEDICATIONS PER DR. LUTHER: 1. Tylenol 650 mg p.o. q.6 hours p.r.n. 2. Eliquis 5 mg p.o. b.i.d. 3. Aspirin 325 mg p.o. daily. 4. NovoLog FlexPen 35 units subcutaneously t.i.d. 5. Tresiba FlexTouch 70 units subcutaneous at bedtime. 6. Lactulose 10 mg p.o. daily. 7. Synthroid 200 mcg p.o. daily. 8. Xiidra 1 drop OP b.i.d. 9. Magnesium 2400 mg p.o. b.i.d. 10. Robaxin 750 mg p.o. 4 times a day. 11. Toprol-XL 50 mg p.o. daily. 12. Singulair 10 mg p.o. at bedtime. 13. [place]-3 fatty acid 1000 mg p.o. daily. 14. Zofran 4 mg p.o. b.i.d. 15. Oxymorphone HCL ER 10 mg p.o. b.i.d. 16. Phenergan 25 mg p.o. q.6 hours p.r.n. 17. Systane eyedrops 1 drop OP 4 times a day. 18. Crestor 10 mg p.o. daily. 19. Crestor 10 mg p.o. at bedtime. 20. Carafate 1 g p.o. 4 times a day. FOLLOWUP: 1. The patient is being discharged home with family. 2. She will follow up with Dr. Ceron in 3-4 weeks as well as her primary care physician, Dr. Rad Ramírez, in 7-10 days. 3. Patient can return to the ED for any worsening of symptoms. DISCHARGE TIME: 30 minutes. Dictated by ADI Hogan for Abel No MD cc: MD Rad Jeffers MD
--- NOTE | 2016-08-02 16:31 | ECHO REPORT ---
ORDER DATE: 07/31/2016 INDICATION: Evaluate heart function. FINDINGS: This is a difficult study with limited images and poor resolution of the endocardial borders. In addition, multiple images are foreshortened. 1. The right ventricle appears to be normal in size with normal systolic function. 2. No mitral valve prolapse. 3. The left ventricle appears to be normal in size. There is the suggestion of normal systolic function, but I would recommend repetition of the study, possibly with Definity contrast, to further evaluate. Insufficient data to evaluate for wall motion abnormalities. 4. No pericardial effusion is identified. cc: Jose Tello MD
[2016-08-02] MEDS ORDERED: ELIQUIS PO SCH (21:00)
[2016-08-03] MEDS ORDERED: TOPROL XL PO SCH (09:00)
== END 2016-08-02 12:31 | disposition home health service (06) ==
LOC: ED 12:37 → SUATTDRO 16:18 → ICU 16:18
PROVIDERS: ATTEND Internal Medicine

== ENCOUNTER 2016-09-12 12:57 | Inpatient (IN) ==
[2016-09-12 14:04] LABS: MANUAL DIFF NEEDED? NO
--- NOTE | 2016-09-12 14:07 | EKG Report ---
Test Performed on : 09/12/2016 1:05:53 PM Test Reason : Chest Pain Blood Pressure : / mmHG Vent. Rate : 060 BPM Atrial Rate : 060 BPM P-R Int : 152 ms QRS Dur : 092 ms QT Int : 446 ms P-R-T Axes : 036 -43 -09 degrees QTc Int : 446 ms Normal sinus rhythm. Left axis deviation Minimal voltage criteria for LVH, may be normal variant Nonspecific ST abnormality Abnormal ECG When compared with ECG of 01-AUG-2016 14:54, Nonspecific T wave abnormality no longer evident in Lateral leads Unconfirmed Result
[2016-09-12 14:12] LABS: BASO% 0.7 % (0.0-0.8); EOS# 0.24 X1000 (0.0-0.7); EOS% 2.3 % (0.0-10.0); HEMATOCRIT 37.9 % (37.0-47.0); HEMOGLOBIN 12.3 g/dL (12.0-16.0); IMM GRAN# 0.02 X1000 (0.0-0.04); IMM GRAN% 0.2 % (0.0-0.5); LYMPH# 2.56 X1000 (1.2-3.4); LYMPH% 24.6 % (20.5-51.1); MCH 28.1 PG (27-31); MCHC 32.5 g/dL (33-37); MCV 86.5 FL (81-99); MONO# 0.68 X1000 (0.11-0.59); MONO% 6.5 % (1.7-9.3); MPV 12.2 FL (7.4-10.4); NEUT% 65.7 % (42.2-75.2); PLT 226 X1000 (130-400); RBC 4.38 XMIL (4.2-5.4)
[2016-09-12 14:19] LABS: INR 1.09; PROTIME 11.5 Seconds (9.2-11.7)
--- NOTE | 2016-09-12 14:28 | Diag Imaging Result Doc PS360 ---
EXAM: CHEST-2 VIEWS HISTORY: CP TECHNIQUE: 08/01/2016 COMPARISON: None. FINDINGS: The lungs are well expanded. The heart is not enlarged. The vessels are not distended. There are no infiltrates. No pleural effusions. There are several scattered granuloma. IMPRESSION: No acute abnormality. Electronically signed by Anthony Clark 09/12/2016 2:25 PM
[2016-09-12 14:34] LABS: AGAP 13; ALKALINE PHOSPHATASE 74 U/L (32-104); BUN 14 mg/dL (8-22); CALCIUM 8.8 mg/dL (8.8-10.2); CHLORIDE 104 mmol/L (98-107); COSMO 282; GOT 15 U/L (10-30); GPT 13 U/L (10-36); MAGNESIUM 1.7 mg/dL (1.5-2.7); POTASSIUM 3.7 mmol/L (3.5-5.1); SODIUM 140 mmol/L (136-145); TCO2 23 mmol/L (25-35); TOTAL BILIRUBIN 0.54 mg/dL (0.20-1.00); TOTAL PROTEIN 7.5 g/dL (6.3-8.3)
[2016-09-12 14:36] LABS: CK PROFILE 221 U/L (24-173)
[2016-09-12 15:23] LABS: CK INDEX 2.3 (0.0-2.5); CK-MB 5.04 ng/mL (0.0-5.0)
[2016-09-12] MEDS ORDERED: G.I. COCKTAIL PO ONE (15:45)
--- NOTE | 2016-09-12 17:12 | PROVIDER DOCUMENTATION ---
This chart was entered by Evangelina Khan Scribe, acting as scribe for Zachery Martinez MD. HPI-Musculoskeletal Pain/Inj - GENERAL Chief Complaint: Chest Pain Stated Complaint: CP Time Seen by Provider: 09/12/16 13:15 Source: patient - HX OF PRESENT ILLNESS-MUSKULOSKELTAL Nature of Presenting Problem: Pt is 66 y/o F presents to the ED with L side back pain. Pt states back pain radiates to chest and neck. Pt states pain started this am at 0930. Pt states pain is sharp. Pt states SOB. Pt states pain is gone now. Pt states recently having a stress test. Quality of Pain: reports: aching Severity in ED: mild Onset/Duration: this morning (0930) Timing: gone now Modifying Factors: improves with: nothing Any recent injury?: No Locality of Occurance: Home Similar Symptoms Previously?: Yes Recently seen or treated by another doctor?: No - BACK & NECK PAIN/INJURY Back/Neck Pain Location: reports: T-spine (L) Back/Neck Pain Radiation: reports: Other (chest and neck) Context / Method of Injury: reports: unknown Associated Symptoms: reports: other (SOB). denies: loss of bladder control, loss of bowel control, fever, lower back pain, muscle spasms, numbness in legs/ feet, numbness in upper ext, sensory/motor loss, tingling in legs/feet, tingling in upper ext, weakness in legs/feet, weakness in upper ext History of Chronic Neck or Back Pain?: No Review of Systems - Adult - REVIEW OF SYSTEMS - ADULT Constitutional: reports: no symptoms reported Eyes: reports: no symptoms reported Ears, Nose, Mouth & Throat: reports: no symptoms reported Cardiovascular: reports: chest pain. denies: heart murmur, irregular heart rate Respiratory: reports: shortness of breath. denies: cough, wheezing Gastrointestinal: reports: no symptoms reported Genitourinary: reports: no symptoms reported Musculoskeletal: reports: back pain, neck pain. denies: joint pain Integumentary: reports: no symptoms reported Neurological: reports: no symptoms reported Psychiatric: reports: no symptoms reported Endocrine: reports: no symptoms reported Hematologic/Lymphatic: reports: no symptoms reported Allergic/Immunologic: reports: no symptoms reported All Other Systems: Reviewed and Negative Past History - Adult - PAST MEDICAL HISTORY-ADULT Review of Records: reports: Nursing Assessment Review, Medications Reviewed, Social history reviewed & non-contributory. Major Childhood Illnesses: reports: denies history Cardiovascular: reports: hyperlipidemia Respiratory: reports: asthma Gastrointestinal: reports: GERD Obstetrical/Gynecological: reports: denies history Genitourinary: reports: denies history Musculoskeletal: reports: arthritis, chronic pain (chronic back pain/ djd), other (chronic fatigue, tendonitis, bone spurs) Neurological: reports: denies history Endocrine/Immune: reports: Diabetes, thyroid disorder Other Conditions: reports: other (fibromyalgia) - PRIOR SURGERIES/PROCEDURES Surgical/Procedure History: reports: cholecystectomy, hysterectomy, orthopedic ( extremity) (Total knee replacement), other (carpal tunnel; tka bilaterally; bladder sling.) - IMMUNIZATION STATUS Childhood Immunizations: See Nurse Assessment Flu Vaccine: See Nurse Assessment - FAMILY HISTORY Family History: reviewed, not pertinent - SOCIAL HISTORY Smoking: quit greater than 1 year, cigarettes Substance Use: denies Living Situation: family Physical Exam-Injury Related - Physical Exam-Injury Related Initial Vital Signs Reviewed: Yes General Appearance: appears well, alert, no apparent distress Eyes: PERRL/EOMI, pink conjunctivae Head, Ears, Nose, Mouth & Throat: normal ENT inspection Neck: non-tender, normal inspection Respiratory: chest non-tender, lungs clear, normal breath sounds Cardiovascular: normal peripheral pulses, regular rate, rhythm Abdominal Exam: normal bowel sounds, non tender, soft Lymphatic: no adenopathy Back Exam: normal inspection Extremity: normal range of motion, normal inspection Integumentary: normal color, warm/dry Neurologic: grossly normal Psych/Mental Status: normal mood/affect, oriented x 3 Progress - PLAN OF CARE/RESULTS Progress/Plan/Lab Results: Vital Signs - 8 hr 09/12/16 13:03 09/12/16 14:09 09/12/16 15:13 Temperature 98.7 F Pulse Rate 58 L 59 L 54 L Respiratory Rate 18 11 L 17 Blood Pressure 153/56 119/66 150/69 O2 Sat by Pulse Oximetry 98 97 97 Laboratory Results - last 24 hr 09/12/16 09/12/16 09/12/16 13:50 13:50 13:50 WBC 10.40 RBC 4.38 Hgb 12.3 Hct 37.9 MCV 86.5 MCH 28.1 MCHC 32.5 L RDW Std Deviation 14.2 Plt Count 226 MPV 12.2 H Immature Gran % (Auto) 0.2 Neut % (Auto) 65.7 Lymph % (Auto) 24.6 Wood % (Auto) 6.5 Eos % (Auto) 2.3 Baso % (Auto) 0.7 Immature Gran # (Auto) 0.02 Neut # (Auto) 6.83 H Lymph # (Auto) 2.56 Wood # (Auto) 0.68 H Eos # (Auto) 0.24 Baso # (Auto) 0.07 PT INR PTT (Actin FS) D-Dimer 0.73 H Sodium 140 Potassium 3.7 Chloride 104 Carbon Dioxide 23 L Anion Gap 13 BUN 14 Creatinine 0.7 Estimated GFR/1.73 m2 > 60 BUN/Creatinine Ratio 20 Glucose 129 H Calculated Osmolality 282 Calcium 8.8 Magnesium 1.7 Total Bilirubin 0.54 AST 15 ALT 13 Alkaline Phosphatase 74 Creatine Kinase 221 H Creatine Kinase Index 2.3 CK-MB (CK-2) 5.04 H Troponin T [id number] Pept Total Protein 7.5 Albumin 4.0 Globulin 3.5 Albumin/Globulin Ratio 1.1 09/12/16 09/12/16 09/12/16 13:50 13:50 13:50 WBC RBC Hgb Hct MCV MCH MCHC RDW Std Deviation Plt Count MPV Immature Gran % (Auto) Neut % (Auto) Lymph % (Auto) Wood % (Auto) Eos % (Auto) Baso % (Auto) Immature Gran # (Auto) Neut # (Auto) Lymph # (Auto) Wood # (Auto) Eos # (Auto) Baso # (Auto) PT 11.5 INR 1.09 PTT (Actin FS) 30.0 D-Dimer Sodium Potassium Chloride Carbon Dioxide Anion Gap BUN Creatinine Estimated GFR/1.73 m2 BUN/Creatinine Ratio Glucose Calculated Osmolality Calcium Magnesium Total Bilirubin AST ALT Alkaline Phosphatase Creatine Kinase Creatine Kinase Index CK-MB (CK-2) Troponin T < 0.010 [id number]-[id number] Pept 124 Total Protein Albumin Globulin Albumin/Globulin Ratio Orders Category Date Time Status Cardiac Monitoring DIRECTED Care 09/12/16 13:36 Active Oxygen Therapy- ED Nursing DIRECTED Care 09/12/16 13:36 Active Saline Loc NOW Care 09/12/16 13:36 Active ANGIOGRAM/PULMONARY ARTERIES [CT] Stat Exams 09/12/16 17:03 Ordered CHEST-2 VIEWS [RAD] Stat Exams 09/12/16 13:36 Completed CBC WITH ELECTRONIC DIFF [HEME] Stat Lab 09/12/16 13:50 Completed CK PROFILE [SP CHEM] Stat Lab 09/12/16 13:50 Completed COMPREHENSIVE METABOLIC PANEL [CHEM] Stat Lab 09/12/16 13:50 Completed D-DIMER [CHEM] Stat Lab 09/12/16 13:50 Completed MAGNESIUM [CHEM] Stat Lab 09/12/16 13:50 Completed PRO B-NATRIURETIC PEPTIDE Stat Lab 09/12/16 13:50 Completed PROTIME WITH INR [COAG] Stat Lab 09/12/16 13:50 Completed PTT [COAG] Stat Lab 09/12/16 13:50 Completed TROPONIN T Stat Lab 09/12/16 13:50 Completed TROPONIN T Stat Lab 09/12/16 17:12 Received Lido/Borrero Alk/Al&mg Hydrox [G.i. Cocktail] Med 09/12/16 15:45 Discontinued 30 ml PO NOW ONE EKG [EKG] Stat Ther 09/12/16 13:36 Draft Result Diagrams: 09/12/16 13:50 09/12/16 13:50 - REASSESSMENT Reassessment #1 Time Reassessed: 15:20 Status: improving (no pain at this point but it started in the back) Reassessment #2 Time Reassessed: 16:45 Status: worsening (at this point had a chest pain but it improved after a GI cocktail, but there was a remaining pressure pain but the sharp pain went away. Will try to contact Dr Blackman) - EKG 1 Time of EKG reading by physician:: 13:05 EKG Read and Signed by:: Zachery Martinez EKG Interpretation (*Must complete 3 of following elements*): Abnormal (minimal voltage criteria for LVH, may be normal variant; nonspecific ST abnormality.) Rate: 60 Rhythm: normal sinus rhythm Comments: left axis deviation; - XRAY 1 XRAY Study: Chest Impression: Normal XRAY Interpretation: no acute abnormality - CONSULTS/PCP/HOSPITALIST Notification #1 *Consult/PCP/Hospitalist*: Dr. Patel Time Discussed: 17:42 Reason/Comments: Dr. Martinez consulted with Dr. Patel about pt Consult Disposition: Admit #2 Consult: Dr Blackman Time Discussed: 17:00 Consult Disposition: Admit (consult her reproduction technician Dr Bustamante to finish her evaluation for CAD) Departure - Departure Date of Disposition Decision: 09/12/16 Time of Disposition Decision: 17:42 DIAGNOSIS: Atypical chest pain Disposition: ADMITTED INPATIENT 09 Certified Medical Emergency: Emergent Condition: Stable Referrals and Follow-Ups: Rad Ramírez MD [Primary Care Provider] - - Critical Care Note This patient required my direct & personal management of CC.: No This chart was documented by the indicated scribe, (Evangelina Khan Scribe) and accurately reflects the services I performed and decisions made by me, Zachery Martinez MD, as attested by the provider's signature.
--- NOTE | 2016-09-12 18:49 | Diag Imaging Result Doc PS360 ---
EXAM: ANGIOGRAM/PULMONARY ARTERIES HISTORY: elevated ddimer/CP TECHNIQUE: CT chest with intravenous contrast. 3-D MIP images obtained. Dose reduction protocol. COMPARISON: None. FINDINGS: Normal opacification of the pulmonary arteries and their major branches. The heart is enlarged. No thoracic aortic aneurysm or dissection. There are calcified mediastinal and hilar nodes with scattered calcified granuloma. No consolidation. No bronchiectasis. IMPRESSION: 1.No pulmonary emboli 2.There is evidence of a prior granulomatous infection. 3.Cardiomegaly 4.Limited images through the upper abdomen reveal cholecystectomy. Electronically signed by nAthony Clark 09/12/2016 6:47 PM
--- NOTE | 2016-09-12 19:06 | HISTORY AND PHYSICAL ---
HISTORY OF PRESENT ILLNESS: This is a 66-year-old, apparently had the 1st part of her nuclear GXT. She is followed by . She has been seen by Dr. Blackman before. Primary care is Dr. Ramírez. Her pain doctor is Dr. Leyva and Dr. Mak. PAST MEDICAL HISTORY: 1. Hyperlipidemia. 2. Gastroesophageal reflux disease. 3. Arthritis. 4. Chronic pain. 5. Chronic back pain. 6. Chronic fatigue. 7. Tendinitis. 8. Bone spurs. 9. Diabetes mellitus type 2. 10. Fibromyalgia. PAST SURGICAL HISTORY: Cholecystectomy. Hysterectomy. Total knee replacement. Carpal tunnel syndrome. Bladder sling. SOCIAL HISTORY: She quit smoking a couple years ago. No alcohol use. ALLERGIES: Klonopin, erythromycin, Betadine, Topamax, trazodone, Polytrim, Zonegran, adhesive tape. ALLERGIES: Klonopin erythromycin Betadine Topamax trazodone poly TRAM Zonegran adhesive tape. MEDICATIONS: Tylenol, albuterol and ipratropium inhaler, DuoNeb, aspirin 325 mg a day, NovoLog FlexPen 35 units t.i.d., Tresiba Flexitouch 7 units at bedtime, levothyroxine or Synthroid 200 mg daily, Xiidra or lifitegrast 1 drop p.o. b.i.d., magnesium 2400 mg p.o. b.i.d., melatonin 5 mg at bedtime, Robaxin 750 mg 4 times a day, Bystolic 5 mg a day, [place]-3 fish oil 1000 mg a day, Zofran for 4 mg b.i.d., Ditropan 5 mg t.i.d., oxymorphone ER 10 mg b.i.d., Phenergan 25 mg q.6 hours, propylene glycol 0.3-0.4 eye drops, 1 drop 4 times a day, Crestor 10 mg daily, Carafate 1 g 4 times a day. FAMILY HISTORY: Noncontributory. She presented today with chest pain that started in her back between her shoulder blades and came to her chest, but then this morning it felt like pressure in her chest. Denied any radiation to her arm or to her neck. No nausea. D-dimer was positive. So a pulmonary arteriogram was done. Chest x-ray was done in the emergency room. No acute abnormality. EKG reviewed and no suspicious ST-segment changes really at all. REVIEW OF SYSTEMS: General: Denies any weight gain or loss. No fever or chills. HEENT: Unremarkable. Respiratory: No increased work of breathing or dyspnea. Cardiovascular: No chest pain or tachy palpitation. GI: Unremarkable. : Unremarkable. Musculoskeletal/Neurologic: No significant complaints. PHYSICAL EXAMINATION: VITAL SIGNS: Temperature 98.3 degrees, pulse 55, respirations 18, blood pressure 126/55. EYES: Pupils are equal. LUNGS: Clear in all lung apple. CARDIOVASCULAR: Regular rhythm and rate without murmur or S3. ABDOMEN: Soft. SKIN: Warm and dry. WEIGHT/HEIGHT: 340 pounds, height 5 feet 7 inches. LABORATORY: White count 10,040, hematocrit 37, platelet count 226,000. Sodium 140, potassium 3.7, chloride 104, bicarb 23, BUN 14, creatinine 0.7, blood sugar 129, calcium 8.8, transaminases unremarkable. CPK 221, troponin less than 0.01. Albumin 4. ProTime 11.3, PTT was 30. ASSESSMENT AND PLAN: 1. Chest pain. Very atypical, but has risk factors for coronary artery disease. We will check cardiac enzymes and electrocardiogram. Dr. Blackman would like us to admit. Dr. Ceron I think has been following, and I understand she has had part of her nuclear Cardiolite stress test. She had a cardioversion on 08/01/2016, converted her from atrial flutter to sinus rhythm. 2. History of hyperlipidemia. 3. Gastroesophageal reflux disease. 4. History of arthritis with chronic pain and chronic back pain. 5. Tendinitis. 6. History of diabetes mellitus type 2. We will follow sugars. 7. Fibromyalgia. cc: Mathew Patel MD
[2016-09-12] MEDS ORDERED: PHENERGAN PO PRN (20:19)
[2016-09-12] MEDS ORDERED: TYLENOL PO PRN ×2 (20:19)
[2016-09-12] MEDS ORDERED: ZOFRAN IV PRN (20:19)
[2016-09-12] MEDS ORDERED: DITROPAN PO SCH (21:00)
[2016-09-12] MEDS ORDERED: MELATONIN PO SCH (21:00)
[2016-09-12] MEDS ORDERED: OXYMORPHONE HCL 10 MG PO SCH (21:00)
[2016-09-12] MEDS ORDERED: ROBAXIN PO SCH (21:00)
[2016-09-12] MEDS ORDERED: INSULIN DEGLUDEC 70 UNIT SQ SCH (21:00)
[2016-09-12] MEDS ORDERED: BENADRYL PO SCH (21:00)
[2016-09-12] MEDS ORDERED: ZOFRAN PO SCH (21:00)
[2016-09-12] MEDS: CARAFATE PO SCH (22:01)
[2016-09-12 22:06] LABS: CK INDEX 2.1 (0.0-2.5); CK-MB 4.54 ng/mL (0.0-5.0)
[2016-09-12] MEDS ORDERED: INSULIN PEN NEEDLES ONE (22:28)
[2016-09-12] MEDS: MAG-OX PO SCH (22:34)
[2016-09-12] MEDS: SYSTANE EYE DROPS OPH SCH (22:36)
[2016-09-12] MEDS: PATIENT'S OWN MED OPH SCH (22:52)
[2016-09-12] MEDS: DUONEB (A & A) INH PRN (23:26)
[2016-09-12] MEDS ORDERED: BYSTOLIC PO SCH (23:47)
[2016-09-13] MEDS ORDERED: IMODIUM PO ONE (00:24)
[2016-09-13] MEDS ORDERED: BENADRYL PO PRN (00:26)
[2016-09-13] MEDS ORDERED: DITROPAN PO PRN (00:26)
[2016-09-13 05:32] LABS: HDL 38 mg/dL (45-65); LDL 42 mg/dL; TRIGLYCERIDES 190 mg/dL (35-135); VLDL 38 mg/dL
--- NOTE | 2016-09-13 06:21 | EKG Report ---
Test Performed on : 09/12/2016 11:44:58 PM Test Reason : chest pain Blood Pressure : / mmHG Vent. Rate : 065 BPM Atrial Rate : 065 BPM P-R Int : 154 ms QRS Dur : 094 ms QT Int : 440 ms P-R-T Axes : 066 -44 008 degrees QTc Int : 457 ms Sinus rhythm. with premature atrial complexes. Left axis deviation Incomplete right bundle branch block Nonspecific ST abnormality Abnormal ECG When compared with ECG of 12-SEP-2016 13:05, (Unconfirmed) premature atrial complexes. are now present Confirmed by Pallavi Leyva MD ([id number]) on 09/13/2016 12:51:02 PM
[2016-09-13 06:45] LABS: CK INDEX 2.1 (0.0-2.5); CK-MB 4.01 ng/mL (0.0-5.0)
[2016-09-13] MEDS ORDERED: SYNTHROID PO SCH (07:00)
[2016-09-13] MEDS ORDERED: PRILOSEC PO SCH (07:00)
[2016-09-13] MEDS: DUONEB (A & A) INH PRN ×2 (08:13→15:39)
[2016-09-13] MEDS: MAG-OX PO SCH (08:41)
[2016-09-13] MEDS: ROBAXIN PO SCH ×3 (08:41→17:14)
[2016-09-13] MEDS: MORPHINE IV PRN ×2 (08:42→11:48)
[2016-09-13] MEDS: HUMALOG SUBQ SCH ×3 (08:46→17:06)
[2016-09-13] MEDS ORDERED: FISH OIL CONCENTRATE PO SCH ×2 (09:00)
[2016-09-13] MEDS ORDERED: BYSTOLIC PO SCH (09:00)
[2016-09-13] MEDS ORDERED: CRESTOR PO SCH (09:00)
[2016-09-13] MEDS ORDERED: ASPIRIN PO SCH ×2 (09:00)
[2016-09-13] MEDS ORDERED: IMODIUM PO PRN (10:24)
[2016-09-13] MEDS: PATIENT'S OWN MED OPH SCH (11:27)
[2016-09-13] MEDS: SYSTANE EYE DROPS OPH SCH (11:28)
[2016-09-13] MEDS: CARAFATE PO SCH ×3 (11:48→14:00)
--- NOTE | 2016-09-13 12:58 | PROGRESS NOTE ---
DATE: 09/13/2016 She has been having some chest pain throughout the night. She said it is not as intense as yesterday evening. Apparently she has had the chemical part of the stress test and is waiting on the resting. On exam, I do not appreciate distended neck veins.Vital signs: Temperature 98.4 degrees, pulse 57, respirations 17. Lungs: Clear in all lung apple. Cardiovascular: Regular rhythm and rate without murmur or S3. Abdomen: Soft. Skin: Is warm and dry. LAB: I reviewed lab again from yesterday. Unremarkable. Troponin less than 0.01. CPK 221, 195. EKG from yesterday with normal sinus rhythm, left axis deviation, and incomplete right bundle branch block. I do not appreciate any suspicious ST segments. Pulmonary angiogram obtained yesterday, no pulmonary emboli. There is evidence of prior granulomatous infection. Cardiomegaly. She has had a cholecystectomy. ASSESSMENT AND PLAN: 1. Chest pain atypical. She has had the 1st part of her exercise test. I have asked Cardiology to evaluate, I believe Dr. Ceron and see what they want to do from here. 2. History of hyperlipidemia. 3. Gastroesophageal reflux disease. 4. History of arthritis, chronic pain, chronic back pain. 5. Tendinitis. 6. History of diabetes mellitus type 2. Sugars under control. 7. History of fibromyalgia. Review of her orders: I do not see anything to change at this point. Appears to be euthyroid on levothyroxine 200 mcg a day. She has had a little bit of loose stool. Let her have some Imodium p.r.n. cc: Mathew Patel MD
[2016-09-13 13:28] LABS: CK INDEX 1.9 (0.0-2.5); CK-MB 3.81 ng/mL (0.0-5.0)
[2016-09-13 16:44] VITALS: BP 119/83
--- NOTE | 2016-09-13 17:38 | DISCHARGE SUMMARY ---
ADMISSION DATE: 09/12/2016 DISCHARGE DATE: 09/13/2016 This is a 66-year-old who presented on 09/12/2016 and discharged on 09/13/2016. She had her 1st part of her nuclear scan done. Followed by Dr. Blackman and Dr. Ramírez. PAST MEDICAL HISTORY: 1. Hyperlipidemia. 2. Gastroesophageal reflux disease. 3. Arthritis. 4. Chronic pain. 5. Chronic back pain. 6. Chronic fatigue. 7. Tendinitis. 8. Bone spurs. 9. Diabetes mellitus type 2. 10. Fibromyalgia. Patient put it with chest pain. Cardiac enzymes were negative. She had the 2nd part of her nuclear scan, resting scan and it was unremarkable. No evidence of ischemia. Cardiac enzymes negative. EKG unremarkable. Pulmonary arteriogram was negative. [place] this most likely represented musculoskeletal pain but could also be esophageal irritation and she wanted go home. Discharged her on 09/13/2016. DISCHARGE MEDICATIONS: She will resume her home medications and the list of home medications is Tylenol as needed. Albuterol ipratropium or DuoNeb 4 times a day as needed. Aspirin 325 mg a day. Benadryl 25 mg b.i.d. p.r.n. Insulin or NovoLog FlexPen 35 units t.i.d. Flexitouch 70 units at bedtime. Synthroid 20 mcg daily. Xiidra 1 drop b.i.d. Magnesium 2,400 mg b.i.d. Melatonin 5 mg. she takes 10 mg at bedtime. She has a melatonin pyridoxine combination 10 mg daily. Robaxin 375 mg p.o. 4 times a day. Bystolic 5 mg at bedtime. [place]-3 fatty acids 2000 mg a day. Ditropan 5 mg t.i.d. Oxymorphone HCL ER 10 mg b.i.d. Propylene glycol eyedrops 4 times a day. Xarelto 20 mg daily. Crestor 10 mg a day and Carafate 1 g 4 times a day. I want her to follow up with her primary care and Dr. Blackman. She is also seen with a pain clinic. cc: Mathew Patel MD
--- NOTE | 2016-09-13 18:29 | CONSULTATION ---
DATE OF CONSULTATION: 09/13/2016 CARDIOLOGY CONSULT NOTE: IMPRESSION: 1. Atypical chest pain. Serial troponins normal. Stress myocardial perfusion study completed this morning and negative for evidence of inducible myocardial ischemia. Suspect chest symptoms more likely noncardiac and possibly inflammatory/musculoskeletal in origin. 2. Previous atrial flutter. Patient is status post cardioversion, a transesophageal echocardiography cardioversion of atrial flutter 08/01/2016. She continues in sinus rhythm. 3. Obesity. 4. Obstructive sleep apnea. 5. Hyperlipidemia. 6. Chronic fatigue. 7. Chronic back disorder. RECOMMENDATIONS: 1. Continue Xarelto for now. 2. Consider alternative etiologies for patient's chest symptoms such as musculoskeletal/inflammatory etiology. It would appear reasonable to pursue a short trial of nonsteroidal anti-inflammatory medications as an outpatient. 3. Given apparent clinical stability from a cardiac standpoint, reasonable to discharge the patient home. Please have her follow up with me in approximately 3 weeks. HISTORY: This 66-year-old, white female, with past history of previous episode of atrial flutter, obesity, with obstructive sleep apnea, chronic fatigue, chronic back disorder was admitted through the emergency room yesterday evening for evaluation of chest pain. She describes sharp discomfort between her spine and her left scapula that extended through to the anterior chest. Discomfort was continuous for several hours. Discomfort was not pleuritic. She did note that it did seem to change as she became supine, but then re-emerged. After this persisted for a few hours she started having some bandlike discomfort across the lower anterior chest. She came to emergency room for evaluation and symptoms improved in the ER. She was admitted. She had recently reported similar discomfort on followup in our office. A stress myocardial perfusion study was already in progress. She had the Lexiscan sestamibi study yesterday and this morning she underwent the resting sestamibi part of the study. This was reviewed and was negative for ischemia. It is also noteworthy that she had a chest CT scan that was negative for pulmonary embolus and negative for aortic dissection. PAST MEDICAL HISTORY: 1. Episode of atrial flutter in July of this year. Patient underwent cardioversion at that time. 2. Obesity. 3. Obstructive sleep apnea. 4. Hyperlipidemia. 5. Chronic fatigue. 6. Chronic back disorder and chronic pain syndrome. 7. Hypothyroidism. PAST SURGICAL HISTORY: Includes cholecystectomy, hysterectomy, total knee replacement, carpal tunnel surgery, and bladder sling. ALLERGIES: She is allergic or intolerant to Klonopin, erythromycin, Betadine, Topamax, trazodone, Polytrim, Zonegran, and adhesive tape. MEDICATIONS: Prior to admission as listed. It is noteworthy that she has been on Xarelto since her atrial flutter episode. SOCIAL HISTORY: She quit smoking more than a year ago. She does not use alcohol. FAMILY HISTORY: Negative for premature coronary disease. REVIEW OF SYSTEMS: Pulmonary: Noteworthy for some shortness of breath in association with her symptoms. Pulmonary review of systems otherwise negative. Gastrointestinal: Review of systems negative. Constitutional: Review of systems noteworthy for fatigue but otherwise negative. The remainder of review of systems negative/noncontributory with 14 total systems reviewed. PHYSICAL EXAMINATION: General Appearance: Reveals an obese, older middle-aged white female, in no distress. Vital Signs: As recorded are stable. HEENT: Extraocular movements intact. Mucous membranes moist. Neck: Supple without jugular venous distention. There are no carotid bruits. Chest: Clear to auscultation. Cardiac Exam: Regular rate and rhythm without appreciable murmur or gallop. Abdomen: Soft, nontender. Bowel sounds are normal. Extremities: Without edema. Neurologic Exam: Reveals her to be alert and fully oriented. Speech is fluent. Moves all 4 extremities equally well. Skin: Warm and dry. Psychiatric: Reveals her mood to be appropriate. DIAGNOSTIC DATA: ECG demonstrates sinus rhythm with occasional premature atrial complex, left axis deviation, incomplete right bundle branch block and nonspecific ST abnormality. Initial troponin less than 0.01. Follow-up troponin less than 0.01. cc: Misael Ceron MD
[2016-09-13] MEDS ORDERED: MELATONIN PO SCH (21:00)
== END 2016-09-13 18:15 | disposition home health service (06) ==
LOC: ED 12:57 → SUATTDRO 18:52 → 3S 18:52
PROVIDERS: ATTEND Emergency Medicine